=== PATIENT | female | born 1995 | race Caucasian/White ===

== ENCOUNTER → 2016-06-09 | Outpatient (CLI) | payer BC ==
[~2016-06-09] MED LIST: CATHETER FLUSH 10 ML SYR IV PRN; IOHEXOL 350 MG/ML 100 ML (OMNIPAQUE 350) VIAL IV ONE; NS 100 ML (IVPB) BAG IV ONE
--- NOTE | 2016-06-09 16:15 | Diagnostic Imaging Report ---
EXAMINATION: Pelvic ultrasound. INDICATION: Right-sided pain. FINDINGS: There are no prior studies available for comparison. The uterus is nongravid and not enlarged measuring 5.8 x 3.9 x 3.2 cm. The endometrial lining is not thickened measuring 3 mm. There is no focal mass involving the uterus to suggest a fibroid. There is a small amount of free fluid in the pelvis. This finding is nonspecific and may be related to the recent rupture of a small ovarian cyst. This could also be secondary to an inflammatory/infectious process. During my real-time examination of the right lower quadrant, I could not identify the appendix due to overlying bowel gas. There is also a 1.4 cm cyst associated with the left ovary. This cyst has a generally benign appearance. The right ovary itself is unremarkable. There is good blood flow to each ovary and there is no sign of torsion. There is no solid pelvic mass or abscess visualized. IMPRESSION: 1. There is a small amount of nonspecific free fluid in the pelvis. There is also a small benign-appearing cyst associated with the left ovary. There is no acute pelvic abnormality identified otherwise. 2. The appendix could not be visualized due to overlying bowel gas. If further evaluation of the appendix is desired, then CT of the abdomen and pelvis would be recommended. 3. These results were discussed with Dr. Seelna Osborne. Dictated by: Dictated on workstation # [id number]
--- NOTE | 2016-06-09 17:27 | Diagnostic Imaging Report ---
PROCEDURE: CT abdomen and pelvis with contrast, rule out appendicitis. TECHNIQUE: Multiple contiguous axial images were obtained through the abdomen and pelvis after the administration of intravenous contrast. INDICATION: Right lower quadrant pain. FINDINGS: There are no previous CT examinations available for comparison. The pelvic ultrasound exam performed earlier today noted a small amount of nonspecific free fluid in the pelvis. There was no other acute abnormality identified. In particular, the appendix could not be identified. On this study, there is a tubular gas-filled structure near the tip of the cecum. I suspect that this is the appendix. There is no distortion of the pericecal fat to suggest an acute inflammatory or infectious process, and at this time, there is no evidence for acute appendicitis. There are a few fluid-filled segments of small bowel low in the pelvis. These are nonspecific but could be secondary to a mild ileus perhaps related to enteritis. There is no solid pelvic mass but the small collection of free fluid in the pelvis seen on the Pelvic ultrasound exam is again visualized. The 1.4 cm cyst associated with the left ovary seen on the pelvic ultrasound exam is partially visualized on the delayed series. The uterus and urinary bladder are grossly unremarkable. There is no evidence for nephrolithiasis or urolithiasis, and the kidneys are non-obstructed. The liver, spleen, pancreas, adrenals, gallbladder, aorta, and inferior vena cava show no sign of an acute abnormality. The stomach is not well distended and consequently difficult to assess. The lung bases are clear. The bone windows show no evidence for a fracture or for a destructive lesion. IMPRESSION: 1. There is no evidence for acute appendicitis at this time. 2. There is a small amount of nonspecific free fluid in the pelvis and a small cyst associated with the left ovary. These would correspond correspond to the findings of the pelvic ultrasound exam. 3. There are a few fluid-filled segments of small bowel low in the pelvis. These are nonspecific but could be secondary to a mild ileus perhaps related to enteritis. 4. There is no acute abnormality of the abdomen and pelvis noted otherwise. 5. These results were called to Dr. Selena Osborne. Dictated by: Dictated on workstation # [id number]
== END ==
LOC: RAD 14:40
PROVIDERS: ATTEND Internal Medicine
DX: R10.31 Right lower quadrant pain (principal)
CPT/HCPCS: 74177; 76830; 76856